=== PATIENT | male | born 1960 | race African-American/Black ===

== ENCOUNTER 2017-02-09 01:07 | Emergency (ER) | payer SELFPAY ==
[2017-02-09 01:25] LABS: BASOPHILS 0.4 % (0-2); EOSINOPHILS 4.4 % (0-7); HEMATOCRIT 40.8 % (42.0-54.0); HEMOGLOBIN 13.3 g/dL (13.5-17.5); IMMATURE GRANULOCYTES 0.2 % (0-5); LYMPHOCYTES 21.2 % (15-50); MCH 26.5 pg (26.0-34.0); MCHC 32.6 g/dL (31.0-37.0); MCV 81.4 fL (80.0-100.0); MEAN PLATELET VOLUME 9.4 fL (7.4-10.4); MONOCYTES 8.1 % (2-11); NEUTROPHILS 65.7 % (40-80); PLATELET COUNT 226 10x3/uL (130-400); RBC 5.01 10x6/uL (4.20-6.10); RDW 14.6 % (11.5-14.5); WBC 4.6 10x3/uL (4.8-10.8)
[2017-02-09 01:40] LABS: ALBUMIN 3.1 g/dL (3.4-5.0); ANION GAP 12.4 mmol/L (8-16); BILIRUBIN - TOTAL 0.5 mg/dL (0.2-1.3); CALCIUM 8.6 mg/dL (8.5-10.1); CARBON DIOXIDE 25.7 mmol/L (21.0-32.0); CREATININE - SERUM 1.2 mg/dL (0.6-1.3); POTASSIUM - SERUM 4.1 mmol/L (3.5-5.1); PROTEIN - SERUM 6.1 g/dL (6.4-8.2)
== END 2017-02-09 03:04 | disposition home or self-care (01) ==
LOC: D.ER 01:07
PROVIDERS: Emergency Medicine
DX: S41.112A Laceration without foreign body of left upper arm, initial encounter (principal); Y04.2XXA Assault by strike against or bumped into by another person, initial encounter; Y93.89 Activity, other specified; Y92.89 Other specified places as the place of occurrence of the external cause; F17.200 Nicotine dependence, unspecified, uncomplicated

== ENCOUNTER 2017-02-17 19:37 | Emergency (ER) | payer SELFPAY | END 2017-02-17 21:10 | disposition home or self-care (01) | LOC: D.ER 19:37 | DX: L25.9 Unspecified contact dermatitis, unspecified cause (principal); S41.112D Laceration without foreign body of left upper arm, subsequent encounter; X58.XXXD Exposure to other specified factors, subsequent encounter; Y92.89 Other specified places as the place of occurrence of the external cause; Z48.02 Encounter for removal of sutures; F17.200 Nicotine dependence, unspecified, uncomplicated ==

== ENCOUNTER 2017-04-17 17:00 | Emergency (ER) | payer SELFPAY ==
[2017-04-17 19:08] LABS: ALBUMIN 3.6 g/dL (3.4-5.0); ALKALINE PHOSPHATASE 88 U/L (46-116); ALT (SGPT) 31 U/L (10-68); BILIRUBIN - TOTAL 0.74 mg/dL (0.2-1.3); CALC OSMOLALITY 275 mosm/kg (275-300); CALCIUM 9.1 mg/dL (8.5-10.1); CARBON DIOXIDE 28.3 mmol/L (21.0-32.0); CHLORIDE - SERUM 101 mmol/L (98-107); GLUCOSE 106 mg/dL (74-106); PROTEIN - SERUM 7.8 g/dL (6.4-8.2); SODIUM 137 mmol/L (136-145); UREA NITROGEN 19 mg/dL (7-18); eGFR NON AFRICAN AMERICAN 81 mL/min (90-120)
== END 2017-04-17 20:01 | disposition home or self-care (01) ==
LOC: D.ER 17:00
PROVIDERS: Physician Assistant Medical
DX: M19.041 Primary osteoarthritis, right hand (principal); M79.605 Pain in left leg; M79.604 Pain in right leg

== ENCOUNTER 2017-12-12 09:41 | Emergency (ER) | payer MEDICAID ==
[~2017-12-12] VITALS: Ht 160 cm; Wt 59.1 kg
[2017-12-12 09:44] VITALS: Ht 160 cm; Wt 59.1 kg
[2017-12-12] MEDS ORDERED: KENALOG 0.1 % 115 GM TOPICAL (09:45)
[2017-12-12] MEDS ORDERED: IBUPROFEN800 MG PO (11:29)
[2017-12-12 11:51] VITALS: BP 135/88
== END 2017-12-12 11:51 | disposition home or self-care (01) ==
LOC: D.ER 09:41
DX: M25.511 Pain in right shoulder (principal); S50.311A Abrasion of right elbow, initial encounter; Y04.2XXA Assault by strike against or bumped into by another person, initial encounter; Y93.89 Activity, other specified; Y92.89 Other specified places as the place of occurrence of the external cause; M25.521 Pain in right elbow; F17.200 Nicotine dependence, unspecified, uncomplicated

== ENCOUNTER 2017-12-21 09:22 | Emergency (ER) | payer MEDICAID ==
[~2017-12-21] VITALS: Ht 160 cm; Wt 59.1 kg
[~2017-12-21 09:22] MED LIST: IBUPROFEN800 MG PO; KENALOG 0.1 % 115 GM TOPICAL
[2017-12-21 09:31] VITALS: Ht 160 cm; Wt 59.1 kg
[2017-12-21] MEDS ORDERED: TORADOL10 MG PO (10:53)
[2017-12-21] MEDS ORDERED: VIBRAMYCIN 100100 MG PO (10:53)
[2017-12-21 11:19] VITALS: BP 132/84
== END 2017-12-21 11:18 | disposition home or self-care (01) ==
LOC: D.ER 09:22
DX: L02.511 Cutaneous abscess of right hand (principal)

== ENCOUNTER → 2019-05-11 15:47 | Outpatient (CLI) | payer OTHER ==
[2017-12-21 09:31] VITALS: BMI 23.0
[~2019-05-11 15:47] MED LIST changes: +TORADOL10 MG PO; +VIBRAMYCIN 100100 MG PO
== END | disposition home or self-care (01) ==
LOC: D.RAD 13:00
PROVIDERS: ATTEND Pediatrics
DX: Z02.71 Encounter for disability determination (principal)